=== PATIENT | female | born 1990 | race Caucasian/White ===

== ENCOUNTER → 2019-05-07 15:33 | Outpatient (CLI) | payer BC, SELFPAY ==
[2019-05-07 16:15] LABS: HCG,Quantitative 0 mIU/mL
== END ==
PROVIDERS: PCP Emergency Medicine; Visit Provider Physician Assistant
DX: N91.2 Amenorrhea, unspecified (principal)
CPT/HCPCS: 36415; 84702

== ENCOUNTER → 2020-07-01 15:22 | Outpatient (CLI) | payer BC, SELFPAY | PROVIDERS: Visit Provider Physician Assistant | DX: N39.0 Urinary tract infection, site not specified (principal) | CPT/HCPCS: 87086; 87088; 87186 ==

== ENCOUNTER 2020-07-01 18:15 | Emergency (ER) | payer BC, SELFPAY ==
[2020-07-01 18:22] VITALS: BP 118/81; PULSE 86; RESP 18; TEMP 36.9; O2SAT 97; BMI 38.7
--- NOTE | 2020-07-01 18:31 | CT_ITS ---
PROCEDURE: CT ABDOMEN PELVIS WO CON CLINICAL INDICATION: philip flank pain Bilateral flank pain COMPARISON: No exams were available for comparison TECHNIQUE: Axial images obtained with sagittal and coronal reformats. All CT scans at the facility use one or more dose reduction, viz: automated exposure control, ma/kV adjustment per patient size (including targeted exams where dose is matched to indication, i.e. head), or iterative reconstruction technique. FINDINGS: LOWER THORAX: There is a 13 mm lobulated noncalcified nodule in the left lower lobe posteriorly. There are bilateral breast implants. There is mild nonspecific thickening of the distal esophagus. ABDOMEN & PELVIS: Prior cholecystectomy. Borderline splenomegaly at 13 cm. The liver, adrenal glands, and pancreas have an unremarkable appearance. No definite renal or ureteral calculus is evident. There is minimal prominence of the ureters nonspecific. The urinary bladder wall is slightly thickened. No intestinal obstruction or free air. Unremarkable appendix no pelvic mass or abnormal fluid collection. There is mild amount of retained colonic feces. Postsurgical changes are present at L5 with inter pedicular screws. Pars interarticularis defect is present at L5. There is a small umbilical hernia containing fat. IMPRESSION: 1. There is mild urinary bladder wall thickening which may be seen with incomplete distension, chronic outflow obstruction, or cystitis.. There is minimal prominence of the ureters on both sides. No definite ureteral calculus 2. Mild amount of retained colonic feces 3. Thirteen mm noncalcified pulmonary nodule in the left lower lobe. If patient does not have known cancer, follow-up should be based on clinical information because of a low risk of cancer in this age group. Dictated by: Modesto Early MD 07/02/2020 03:56 Modesto Early MD in [place] 07/02/2020 03:56
--- NOTE | 2020-07-01 18:35 | PC.NURSE ---
notified rad of ct order, spoke with Leticia
[2020-07-01 18:40] LABS: Basophils # 0.1 K/mm3 (0-0.2); Basophils % 0.6 % (0.1-2.0); Eosinophils # 0.1 K/mm3 (0.0-0.4); Eosinophils % 1.2 % (0.1-12.0); Hematocrit 38.4 % (37.0-47.0); Hemoglobin 13.7 g/dL (12.2-16.2); Lymphocytes # 2.6 K/mm3 (0.7-4.5); Lymphocytes % 22.8 % (10-50); Mean Corpuscular HGB Conc 35.6 g/dL (31.8-35.4); Mean Corpuscular Hemoglobin 32.2 pg (27.0-31.2); Mean Corpuscular Volume 90.4 fl (81-99); Mean Platelet Volume 8.1 fl (7.4-10.4); Monocytes # 0.6 K/mm3 (0.1-1.0); Monocytes % 5.2 % (1.7-9.3); Neutrophils % 70.1 % (37.0-80.0); Platelet Count 265 K/mm3 (142-424); Red Blood Count 4.24 M/mm3 (4.20-5.40); White Blood Count 11.4 K/mm3 (4.8-10.8)
[2020-07-01 18:42] LABS: Chloride 102 mmol/L (98-107); Sodium 139 mmol/L (136-145)
[2020-07-01 18:45] LABS: Alanine Aminotransferase 18 U/L (12-78); Albumin Level 4.3 g/dl (3.5-5.0); Albumin/Globulin Ratio 1.5 (1.1-1.8); Alkaline Phosphatase 63 U/L (38-126); Aspartate Amino Transferase 26 U/L (14-36); Bilirubin,Total 0.5 mg/dl (0.2-1.3); Blood Urea Nitrogen 13 mg/dl (7-17); Carbon Dioxide 28 mmol/L (22.0-30.0); Creatinine Clearance Estimated 180 mL/min (50-200); Estimated Glomerular Filt Rate 85 ml/min (>60); GFR (African American) 103 ML/MIN (>60); Globulin 2.9 g/dL (1.3-3.2); Total Protein,Serum 7.2 g/dl (6.3-8.2)
[2020-07-01 18:46] LABS: Calcium 9.3 mg/dl (8.4-10.2); Glucose 98 mg/dl (74-100)
[2020-07-01 18:46] LABS: Microscopic, Urine URINE MICROSCOPIC (MICROSCOPIC)
[2020-07-01 18:51] LABS: Appearance,Urine SL CLOUDY (Clear); Bilirubin,Urine Negative (Negative); Blood, Urine 2+ (Negative); Color,Urine YELLOW (Yellow); Glucose,Urine (UA) Negative (Negative); Ketones,Urine Negative (Negative); Leukocyte Esterase,Urine 2+ (Negative); Nitrate,Urine POSITIVE (Negative); Protein,Urine Negative (Negative); Urobilinogen,Urine 0.2 EU/dl (0.2)
[2020-07-01 18:56] LABS: Urine Pregnancy, HCG Qual. Negative (Negative)
[2020-07-01 19:04] LABS: Bacteria,Urine Trace /lpf
--- NOTE | 2020-07-01 19:16 | HMH.EDUROGF ---
ED Disposition Clinical Impression: Urinary tract infection, Pyelonephritis Disposition: Home, Self-Care Condition on Discharge: Good Instructions: DI for Urinary Tract Infection (UTI), DI for Urinary Tract Infection in Children Prescriptions: Nabumetone 750 mg PO BID 10 Days #20 tab Transmission Status: Pending to [facility] Cefdinir [Omnicef 300mg Capsule] 300 mg PO BID 10 Days #20 cap Transmission Status: Pending to [facility] Cefdinir [Omnicef 300mg Capsule] 300 mg PO BID 10 Days #20 cap Transmission Status: Pending to [facility] Promethazine HCl 50 mg PO TID 6 Days #20 tab Transmission Status: Pending to [facility] Ondansetron [Zofran 4mg ODT] 4 mg PO TID PRN 4 Days #15 tab.rapdis PRN Reason: Nausea Transmission Status: Pending to [facility] Referrals: Mariam Lowery PA [Primary Care Provider] - - Critical Care Critical Care Time: No Attestation: On 07/01/20, the high probability of a clinically significant, sudden or life threatening deterioration of the following system(s) required my full and direct attention, intervention and personal management. The time I documented below is in addition to time spent performing reported procedures but includes the following listed in this critical care notation. Medical Decision Making - Medical Records Medical records reviewed: Yes: I reviewed the patient's medical records. - Crescencio Inquiry Pt receiving controlled substance: No Vital Signs: 07/01/20 18:22 Temperature 98.5 F Temperature Source Oral Pulse Rate [Left Radial] 86 Respiratory Rate 18 Blood Pressure [Left Arm] 118/81 Blood Pressure Mean [Left Arm] 93 Blood Pressure Source [Left Arm] Automatic Cuff Blood Pressure Position [Left Arm] Sitting 02 Sat by Pulse Oximetry 97 Oxygen Delivery Method Room Air - Lab Data Lab results reviewed: Yes: I reviewed the patient's lab results. Lab Results 07/01/20 18:32: WBC 11.4 H, RBC 4.24, Hgb 13.7, Hct 38.4, MCV 90.4, MCH 32.2 H, MCHC 35.6 H, RDW 13.0, Plt Count 265, MPV 8.1, Neut % (Auto) 70.1, Lymph % (Auto) 22.8, [place] % (Auto) 5.2, Eos % (Auto) 1.2, Baso % (Auto) 0.6, Neut # (Auto) 8.0 H, Lymph # (Auto) 2.6, [place] # (Auto) 0.6, Eos # (Auto) 0.1, Baso # (Auto) 0.1 07/01/20 18:32: Sodium 139, Potassium 4.0, Chloride 102, Carbon Dioxide 28, Anion Gap 13.0, BUN 13, Creatinine 0.80, Estimated Creat Clear 180, Estimated GFR 85, Est GFR ( Amer) 103, Glucose 98, Calcium 9.3, Total Bilirubin 0.5, AST 26, ALT 18, Alkaline Phosphatase 63, Total Protein 7.2, Albumin 4.3, Globulin 2.9, Albumin/Globulin Ratio 1.5 07/01/20 18:33: Urine Color Yellow, Urine Appearance Sl cloudy, Urine pH 7.0, Ur Specific [place] 1.010, Urine Protein Negative, Urine Glucose (UA) Negative, Urine Ketones Negative, Urine Blood 2+, Urine Nitrate Positive, Urine Bilirubin Negative, Urine Urobilinogen 0.2, Ur Leukocyte Esterase 2+ A, Urine RBC 3-5, Urine WBC 10-20, Ur Squamous Epith Cells 10-20, Urine Bacteria Trace 07/01/20 18:40: Urine HCG, Qual Negative Result diagrams: 07/01/20 18:32 07/01/20 18:32 Orders (Tests/Meds): ED MEDICATIONS Generic Name Dose Route Start Last Admin Trade Name Freq PRN Reason Stop Dose Admin Sodium Chloride 1,000 mls @ 999 mls/hr 07/01/20 18:45 07/01/20 18:44 Sod Chlor 0.9% 1000ml Bag IV 07/01/20 19:45 999 mls/hr .Q1H1M RACHEL Administration Ceftriaxone Sodium 1 gm/ 50 mls @ 100 mls/hr 07/01/20 18:45 07/01/20 18:44 Sodium Chloride IV 07/15/20 18:44 100 mls/hr Q24H RACHEL Administration Protocol Discontinued Medications Generic Name Dose Route Start Last Admin Trade Name Freq PRN Reason Stop Dose Admin Hydromorphone HCl 2 mg 07/01/20 19:23 07/01/20 19:32 Dilaudid 2mg/Ml Syringe IV 07/01/20 19:24 2 mg ONCE ONE Administration Morphine Sulfate 4 mg 07/01/20 18:40 07/01/20 18:44 Morphine 4mg/Ml Syringe IV 07/01/20 18:41 4 mg ONCE ONE A
[2020-07-01 19:50] VITALS: BP 132/70; PULSE 74; RESP 16; TEMP 36.8; O2SAT 98
== END 2020-07-01 20:12 | disposition home or self-care (01) ==
PROVIDERS: Emergency Provider Family Medicine; PCP Physician Assistant
DX: N30.00 Acute cystitis without hematuria (principal); N12 Tubulo-interstitial nephritis, not specified as acute or chronic; F41.8 Other specified anxiety disorders; Z90.49 Acquired absence of other specified parts of digestive tract; Z88.5 Allergy status to narcotic agent
CPT/HCPCS: 74176; 80053; 81001; 81025; 85025; 96365; 96367; 96375; 99283; J2405

== ENCOUNTER → 2020-10-30 16:50 | Outpatient (CLI) | payer BC, SELFPAY | PROVIDERS: PCP Physician Assistant; Referring Provider Physician Assistant; Visit Provider Physician Assistant | DX: Z03.818 Encounter for observation for suspected exposure to other biological agents ruled out (principal) | CPT/HCPCS: U0003 ==

== ENCOUNTER → 2020-12-24 18:31 | Outpatient (CLI) | payer BC, SELFPAY ==
[2020-12-24 19:28] LABS: Basophils % 0.6 % (0.1-2.0); Eosinophils # 0.1 K/mm3 (0.0-0.4); Eosinophils % 1.1 % (0.1-12.0); Hematocrit 42.4 % (37.0-47.0); Hemoglobin 14.2 g/dL (12.2-16.2); Lymphocytes # 1.8 K/mm3 (0.7-4.5); Lymphocytes % 25.7 % (10-50); Mean Corpuscular HGB Conc 33.5 g/dL (31.8-35.4); Mean Corpuscular Hemoglobin 30.5 pg (27.0-31.2); Mean Platelet Volume 8.9 fl (7.4-10.4); Monocytes # 0.4 K/mm3 (0.1-1.0); Neutrophils # 4.7 K/mm3 (1.8-7.8); Neutrophils % 66.6 % (37.0-80.0); Platelet Count 297 K/mm3 (142-424); Red Blood Count 4.66 M/mm3 (4.20-5.40); Red Cell Distribution Width 13.3 % (11.5-17.5); White Blood Count 7.1 K/mm3 (4.8-10.8)
[2020-12-24 19:36] LABS: Alanine Aminotransferase 20 U/L (12-78); Albumin Level 4.4 g/dl (3.5-5.0); Albumin/Globulin Ratio 1.5 (1.1-1.8); Alkaline Phosphatase 66 U/L (38-126); Anion Gap 12.3 mEq/L (5-15); Aspartate Amino Transferase 27 U/L (14-36); Blood Urea Nitrogen 11 mg/dl (7-17); Calcium 10.1 mg/dl (8.4-10.2); Carbon Dioxide 24 mmol/L (22.0-30.0); Chloride 106 mmol/L (98-107); Chol/HDL Ratio 3.4 (1-3.5); Cholesterol 189 mg/dl (140-200); Estimated Glomerular Filt Rate 74 ml/min (>60); GFR (African American) 90 ML/MIN (>60); Glucose 95 mg/dl (74-100); HDL Cholesterol 56 mg/dl (40-60); Potassium 4.3 mmoL/L (3.5-5.1); Sodium 138 mmol/L (136-145); Total Protein,Serum 7.4 g/dl (6.3-8.2); Triglycerides 154 mg/dl (30-150); VLDL Cholesterol 31 mg/dL (0-40)
[2020-12-24 19:47] LABS: Direct LDL Cholesterol 103.71 mg/dL (100-129)
[2020-12-24 19:51] LABS: 25-OH Vitamin D, Total 31.4 ng/mL (30-100)
[2020-12-24 19:57] LABS: T4 (Thyroxine) 11.5 ug/dl (5.53-11.0)
[2020-12-26 13:57] LABS: Anti-Centromere B Antibodies <0.2 AI (0.0-0.9); Anti-Jo-1 <0.2 AI (0.0-0.9); Anti-Smith Antibody <0.2 AI (0.0-0.9); Antichromatin Antibodies <0.2 AI (0.0-0.9); Antiscleroderma-70 Antibodies <0.2 AI (0.0-0.9); RNP Antibodies <0.2 AI (0.0-0.9); Sjogren's Anti-SS-A <0.2 AI (0.0-0.9); Sjogren's Anti-SS-B <0.2 AI (0.0-0.9)
[2020-12-26 14:02] LABS: Anti-DNA (DS) Ab Qn 1 IU/mL (0-9)
== END ==
PROVIDERS: Visit Provider Nurse Practitioner Family
DX: F41.9 Anxiety disorder, unspecified (principal); R53.83 Other fatigue; E66.9 Obesity, unspecified; Z68.39 Body mass index [BMI] 39.0-39.9, adult
CPT/HCPCS: 80053; 80061; 82306; 84436; 84443; 85025; 86225; 86235

== ENCOUNTER → 2021-02-19 15:41 | Outpatient (CLI) | payer BC, SELFPAY ==
[2021-02-19 16:40] LABS: HCG Qualitative, Serum Negative (Negative)
== END ==
PROVIDERS: Visit Provider Physician Assistant
DX: N91.2 Amenorrhea, unspecified (principal)
CPT/HCPCS: 84703

== ENCOUNTER → 2021-02-21 09:42 | Outpatient (CLI) | payer BC, SELFPAY ==
[2021-02-21 12:37] LABS: Coronavirus 19 IgM Antibody Negative (Negative)
[2021-02-21 12:38] LABS: Coronavirus 19 IgG Antibody Positive (Negative)
== END ==
PROVIDERS: Visit Provider Internal Medicine Gastroenterology
DX: Z01.812 Encounter for preprocedural laboratory examination (principal); Z20.822 Contact with and (suspected) exposure to COVID-19; Z13.810 Encounter for screening for upper gastrointestinal disorder
CPT/HCPCS: 36415; 86328

== ENCOUNTER 2021-02-23 10:17 | Day surgery (SDC) | payer BC, SELFPAY ==
[2021-02-19 08:26] VITALS: BMI 37.8
[2021-02-23 10:46] VITALS: BP 121/87; PULSE 73; RESP 18; TEMP 36.3; O2SAT 100
[2021-02-23 11:16] VITALS: O2SAT 97
--- NOTE | 2021-02-23 11:37 | HMH.PROC ---
[facility] Procedure Note Procedure Note:: Upper Endoscopy Procedure Report: Esophagogastroduodenoscopy with cold biopsies and TTS balloon dilation Endoscopost: Wes Sarabia II, MD Referring Physician: NOÉ Laird Date of Procedure: February 23, 2021 Equipment: Olympus GIF 190 standard upper endoscope Sedation: MAC sedation Indications: Mrs. Hernandez is a 30-year-old female with dyspepsia. She has epigastric and left upper quadrant abdominal pain that occurs postprandially. She has moderate fullness and early satiety. She only eats 1 meal a day. She may have food regurgitation that can occur up to 8 hours after her meal. She has nausea, bloating, belching and chest pain. She reports less heartburn but does get the chest pressure that radiates between her shoulder blades. She has lost 20 pounds unintentionally in the last year. She does have chronic constipation for which she occasionally eats prunes. She reports globus sensation and occasional dysphagia. Procedure: Prior to the procedure, a history and physical exam was performed, and patient's medications and allergies were reviewed. The risks, benefits and alternatives of the sedation and procedure were discussed with the patient. All questions were answered and informed consent was obtained. The patient was brought to the procedure room. Patient identification and proposed procedure were verified by the physician and the nurse. The patient was placed in a left lateral decubitus position and the scope was passed under direct vision. Throughout the procedure, the patient's blood pressure, pulse, and oxygen saturations were monitored continuously. The upper GI endoscopy was accomplished without difficulty. The patient tolerated the procedure well. Findings: The scope was passed directly into the upper esophagus and advanced to the third portion of the duodenum. The post bulbar duodenum and duodenal bulb were normal with normal mucosa and conniventes. The scope was withdrawn through a normal duodenal bulb and pylorus into the stomach. There was moderate linear reactive gastropathy of the antrum and body with bile reflux. The remainder of the fundus of the stomach was grossly normal. Upon retroflexion there was a 2 cm small hiatal hernia. 2 biopsies were taken in the antrum and along the lesser curvature for histology to rule out gastritis and/or H pylori. The scope was then withdrawn into the esophagus. There was a serrated Z-line. There was no evidence of reflux esophagitis or Konx's. There was no Schatzki's ring. There were tertiary contractions and evidence of moderate esophageal dysmotility. The entire esophagus was dilated to 60 Guamanian/20 mm with a TTS hydrostatic balloon. There was some resistance at the cricopharyngeus. The remainder of the esophageal mucosa was normal. Impression: 1. 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 Nonerosive GERD with moderate esophageal dysmotility and small 2 cm hiatal hernia 3. Moderate linear reactive gastropathy with bile reflux Plan: I will follow-up the biopsies. 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 This is due to obstipation and high gas pressure gradients. I will discussed dietary measures, fiber bowel regimen and promotility therapy.
[2021-02-23 11:44] VITALS: BP 136/78; PULSE 91; RESP 12; TEMP 36.4; O2SAT 95
[2021-02-23 11:51] VITALS: BP 143/79; PULSE 83; RESP 16; O2SAT 96
[2021-02-23 12:01] VITALS: BP 134/86; PULSE 88; RESP 16; O2SAT 98
[2021-02-23 12:11] VITALS: BP 148/94; PULSE 67; RESP 16; TEMP 36.4; O2SAT 99
--- NOTE | 2021-02-23 17:15 | HMH.ANESCL ---
[facility] Anesthesia Checklist - Patient Identification Patient Identification: Arm Band - Structural Data Admitted From: Home Planned Operative Procedure/s: EGD Verified Documents: Surgical Consent, History and Physical - Airway Assessment TMJ Mobility Assessed: Yes Dentition: Good Dentition - Neurological Assessment Level of Consciousness: Awake, Alert - Anesthesia Plan Anesthesia Risk discussed: Yes Anesthesia Plan: Verified ASA Class: III Anesthesia Type: MAC [facility] History Medical History: Reports:: Anxiety, Depression Denies:: Cancer, Diabetes Mellitus Type 1, Diabetes Mellitus Type 2, Internal Pacemaker, MRSA, Seizures *Have you ever received a pneumonia vaccine?: No *Have you received a flu vaccine this season?: Yes Anesthesia experience/problems:: None Other Surgeries: Yes: Cholecystectomy, Plastic Surgery, Other. No: Pacemaker Amputation: No Fractures: No - *Social History Smoking Status: Never smoker Alcohol Intake: never Alcohol Intake Frequency:: holidays/special occasions only Substance Use Type: denies use *Occupational Status:: employed Housing: house Household Members: children *Travel in the last 8 weeks: None - Psychiatric History Pschychiatric History:: Reports:: Anxiety, Depression Family Hx:: No significant family history
== END 2021-02-23 12:12 | disposition home or self-care (01) ==
LOC: OUTP 10:22
PROVIDERS: PCP Physician Assistant; Visit Provider Internal Medicine Gastroenterology
PROC: 0DJ08ZZ Inspection of Upper Intestinal Tract, Via Natural or Artificial Opening Endoscopic (ICD-10-PCS; CPT 43235; principal; 2021-02-23 11:30)
DX: J39.2 Other diseases of pharynx (principal); K21.9 Gastro-esophageal reflux disease without esophagitis; K22.4 Dyskinesia of esophagus; K44.9 Diaphragmatic hernia without obstruction or gangrene; K31.9 Disease of stomach and duodenum, unspecified; F41.9 Anxiety disorder, unspecified; F32.9 Major depressive disorder, single episode, unspecified; Z88.6 Allergy status to analgesic agent; Z91.013 Allergy to seafood; Z79.82 Long term (current) use of aspirin; Z79.899 Other long term (current) drug therapy
CPT/HCPCS: 43239; 43249; C1726

== ENCOUNTER → 2021-12-15 11:01 | Outpatient (CLI) | payer BC, SELFPAY ==
[2021-12-15 12:02] LABS: Basophils # 0.1 K/mm3 (0-0.2); Basophils % 0.8 % (0.1-2.0); Eosinophils # 0.1 K/mm3 (0.0-0.4); Eosinophils % 1.6 % (0.1-12.0); Hematocrit 41.2 % (37.0-47.0); Hemoglobin 13.8 g/dL (12.2-16.2); Lymphocytes # 1.9 K/mm3 (0.7-4.5); Lymphocytes % 27.7 % (10-50); Mean Corpuscular HGB Conc 33.6 g/dL (31.8-35.4); Mean Corpuscular Hemoglobin 30.3 pg (27.0-31.2); Mean Corpuscular Volume 90.3 fl (81-99); Mean Platelet Volume 8.5 fl (7.4-10.4); Monocytes # 0.4 K/mm3 (0.1-1.0); Monocytes % 5.7 % (1.7-9.3); Neutrophils # 4.3 K/mm3 (1.8-7.8); Neutrophils % 64.1 % (37.0-80.0); Platelet Count 325 K/mm3 (142-424); Red Blood Count 4.56 M/mm3 (4.20-5.40); Red Cell Distribution Width 13.4 % (11.5-17.5); White Blood Count 6.8 K/mm3 (4.8-10.8)
[2021-12-15 12:55] LABS: Chloride 101 mmol/L (98-107); Potassium 4.6 mmoL/L (3.5-5.1); Sodium 136 mmol/L (136-145)
[2021-12-15 12:57] LABS: Alanine Aminotransferase 20 U/L (12-78); Blood Urea Nitrogen 13 mg/dl (7-17); Estimated Glomerular Filt Rate 74 ml/min (>60); GFR (African American) 90 ML/MIN (>60)
[2021-12-15 12:58] LABS: Albumin Level 4.6 g/dl (3.5-5.0); Albumin/Globulin Ratio 1.8 (1.1-1.8); Alkaline Phosphatase 54 U/L (38-126); Anion Gap 13.6 mEq/L (5-15); Aspartate Amino Transferase 26 U/L (14-36); Bilirubin,Total 1.1 mg/dl (0.2-1.3); Calcium 8.9 mg/dl (8.4-10.2); Carbon Dioxide 26 mmol/L (22.0-30.0); Chol/HDL Ratio 2.5 (1-3.5); Cholesterol 173 mg/dl (140-200); Globulin 2.5 g/dL (1.3-3.2); Glucose 96 mg/dl (74-100); HDL Cholesterol 69 mg/dl (40-60); Total Protein,Serum 7.1 g/dl (6.3-8.2); Triglycerides 93 mg/dl (30-150); VLDL Cholesterol 19 mg/dL (0-40)
[2021-12-15 13:09] LABS: Direct LDL Cholesterol 80.48 mg/dL (100-129)
== END ==
PROVIDERS: Visit Provider Nurse Practitioner Family
DX: Z13.220 Encounter for screening for lipoid disorders (principal); T14.8XXA Other injury of unspecified body region, initial encounter; Z79.899 Other long term (current) drug therapy
CPT/HCPCS: 36415; 80053; 80061; 85025

== ENCOUNTER → 2022-03-08 10:42 | Outpatient (CLI) | payer BC, SELFPAY ==
[2022-03-08 18:07] LABS: Coronavirus 19, PCR Not Detected (NotDetected); Influenza A, PCR Not Detected (NotDetected); Influenza B, PCR Not Detected (NotDetected)
== END ==
PROVIDERS: PCP Physician Assistant; Visit Provider Physician Assistant
DX: Z11.52 Encounter for screening for COVID-19 (principal); R68.89 Other general symptoms and signs
CPT/HCPCS: C9803; U0003; U0005

== ENCOUNTER → 2022-04-15 07:09 | Outpatient (CLI) | payer BC, SELFPAY | PROVIDERS: PCP Physician Assistant; Visit Provider Physician Assistant | DX: N39.0 Urinary tract infection, site not specified (principal) | CPT/HCPCS: 87086 ==

== ENCOUNTER 2022-04-27 17:16 | Emergency (ER) | payer BC, SELFPAY ==
[2022-04-27 18:00] VITALS: BP 131/70; PULSE 89; RESP 18; TEMP 36.8; O2SAT 98; BMI 34.3
--- NOTE | 2022-04-27 18:17 | HMH.EDUTC ---
[facility] [place] Clinical Impression: UTI (urinary tract infection) Qualifiers: Urinary tract infection type: site unspecified Hematuria presence: with hematuria Qualified Code(s): N39.0 - Urinary tract infection, site not specified URI (upper respiratory infection) Qualifiers: URI type: unspecified URI Qualified Code(s): J06.9 - Acute upper respiratory infection, unspecified Disposition: Home, Self-Care Condition on Discharge: Good Instructions: Urinary Tract Infection, DI for Urinary Tract Infection (UTI), Cefdinir Additional Instructions: *Increase fluids. Water not Soda or Tea *Start antibiotic immediately and be sure to take as ordered for the FULL length of time although you should start to see improvement over the next 48 hours *Pyridium as needed Remember this medication will turn your urine [place]. This is normal but it will stain what ever it gets on *You should not use Pyridium for more than 48 hours. If so , follow up with your primary physician to review urine culture and ensure that antibiotic is adequate for infection *Be SURE to follow up anytime for new or worsening symptoms with your family doctor. AND in 48 hours for urine culture results with your family doctor, if you do not have a doctor then you may call back to the [facility] for urine culture results and further treatment. We do recommend that you choose and establish care with a Primary Care Physician. AND follow up with them in 10-14 days to repeat UA to ensure infection is resolved and blood no longer present *Be sure to let your PCP know that we sent urine cultures from the [facility] so they can follow up to ensure that you area the on the correct antibiotic Call your doctor office and make appointment for 48 hours (2 days from today) to follow up and get the results of your urine culture and further treatment Prescriptions: Cefdinir [Omnicef 300mg Capsule] 300 mg PO BID 7 Days #14 cap Transmission Status: Received by [facility] Phenazopyridine HCl [Pyridium 200mg Tablet] 200 pow PO TID #6 tab Transmission Status: Received by [facility] Ondansetron [Zofran 4mg ODT] 4 mg PO TIDP PRN #12 tab PRN Reason: Nausea Transmission Status: Received by [facility] Referrals: Mariam Lowery PA [Primary Care Provider] - As needed Time of Disposition: 18:30 Medical Decision Making - Crescencio Inquiry Pt receiving controlled substance: No Crescencio was queried for this patient: No Vital Signs: 04/27/22 18:00 04/27/22 18:36 Temperature 98.3 F 98.3 F Temperature Source Oral Pulse Rate 89 Pulse Rate [Right Brachial] 89 Respiratory Rate 18 19 Blood Pressure 131/70 Blood Pressure [Right Arm] 131/70 Blood Pressure Mean [Right Arm] 90 Blood Pressure Source [Right Arm] Automatic Cuff Blood Pressure Position [Right Arm] Sitting 02 Sat by Pulse Oximetry 98 Oxygen Delivery Method Room Air - Lab Data Lab results reviewed: Yes: I reviewed the patient's lab results. Lab Results 04/27/22 18:05: Urine Color Yellow, Urine Appearance Cloudy, Urine pH 6.0, Ur Specific [place] 1.010, Urine Protein Negative, Urine Glucose (UA) Negative, Urine Ketones Negative, Urine Blood Trace, Urine Nitrate Negative, Urine Bilirubin Negative, Urine Urobilinogen 0.2, Ur Leukocyte Esterase 2+ A Orders (Tests/Meds): ED MEDICATIONS Discontinued Medications Generic Name Dose Route Start Last Admin Trade Name Heberq PRN Reason Stop Dose Admin Ceftriaxone Sodium 1 gm 04/27/22 18:27 04/27/22 18:35 Ceftriaxone 1gm Vial IM 04/27/22 18:28 1 gm ONCE ONE Administration Lidocaine HCl 0 ml 04/27/22 18:27 04/27/22 18:35 Lidocaine 1% 5ml Pf Vial IM 04/27/22 18:28 2 ml ONCE ONE Administration ORDERS Category Date Time Status Urine Culture Stat Micro 04/27/22 18:20 Ordered [facility] HPI - General Stated complaint: poss UTI Time Seen by Provider: 04/27/22 18:17 Mode of Arrival: Ambulatory Source of Informat
[2022-04-27 18:21] LABS: Apearance,Urine Cloudy (Clear); Bilirubin,Urine Negative (Negative); Blood, Urine Trace (Negative); Color,Urine Yellow (Yellow); Glucose,Urine (UA) Negative (Negative); Ketones,Urine Negative (Negative); Protein,Urine Negative (Negative); UTC Leukocyte Esterase,Urine 2+ (Negative); Urobilinogen,Urine 0.2 EU/dl (0.2)
[2022-04-27 18:22] LABS: UTC Nitrate,Urine Negative (Negative)
[2022-04-27 18:36] VITALS: BP 131/70; PULSE 89; RESP 19; TEMP 36.8; O2SAT 98
== END 2022-04-27 18:43 | disposition home or self-care (01) ==
PROVIDERS: Emergency Provider Nurse Practitioner; PCP Physician Assistant
DX: N39.0 Urinary tract infection, site not specified (principal)
CPT/HCPCS: 81003; 87086; 96372; 99212; G0463; J0696

== ENCOUNTER → 2022-06-22 09:04 | Outpatient (CLI) | payer BC, SELFPAY ==
[2022-06-22 10:19] LABS: Basophils # 0.1 K/mm3 (0-0.2); Basophils % 0.8 % (0.1-2.0); Eosinophils # 0.1 K/mm3 (0.0-0.4); Hematocrit 38.8 % (37.0-47.0); Lymphocytes # 1.7 K/mm3 (0.7-4.5); Lymphocytes % 25.8 % (10-50); Mean Corpuscular Hemoglobin 28.9 pg (27.0-31.2); Mean Corpuscular Volume 93.2 fl (81-99); Mean Platelet Volume 7.6 fl (7.4-10.4); Monocytes # 0.3 K/mm3 (0.1-1.0); Monocytes % 4.5 % (1.7-9.3); Neutrophils # 4.5 K/mm3 (1.8-7.8); Neutrophils % 67.9 % (37.0-80.0); Platelet Count 307 K/mm3 (142-424); Red Blood Count 4.17 M/mm3 (4.20-5.40); Red Cell Distribution Width 12.8 % (11.5-17.5); White Blood Count 6.7 K/mm3 (4.8-10.8)
[2022-06-22 10:21] LABS: Chloride 102 mmol/L (98-107)
[2022-06-22 10:22] LABS: Sodium 136 mmol/L (136-145)
[2022-06-22 10:24] LABS: Alanine Aminotransferase 18 U/L (12-78); Albumin Level 4.3 g/dl (3.5-5.0); Albumin/Globulin Ratio 1.7 (1.1-1.8); Alkaline Phosphatase 59 U/L (38-126); Aspartate Amino Transferase 26 U/L (14-36); Bilirubin,Total 0.6 mg/dl (0.2-1.3); Blood Urea Nitrogen 17 mg/dl (7-17); Carbon Dioxide 30 mmol/L (22.0-30.0); Estimated Glomerular Filt Rate 84 ml/min (>60); GFR (African American) 102 ML/MIN (>60); Globulin 2.5 g/dL (1.3-3.2); Total Protein,Serum 6.8 g/dl (6.3-8.2)
[2022-06-22 10:25] LABS: Calcium 9.5 mg/dl (8.4-10.2); Chol/HDL Ratio 2.3 (1-3.5); Cholesterol 170 mg/dl (140-200); Glucose 114 mg/dl (74-100); HDL Cholesterol 73 mg/dl (40-60); Triglycerides 76 mg/dl (30-150); VLDL Cholesterol 15 mg/dL (0-40)
[2022-06-22 10:30] LABS: C-Reactive Protein 2.5 mg/L (0-4)
[2022-06-22 10:44] LABS: Erythrocyte Sedimentation Rate 15 mm/hr (0-20)
[2022-06-22 11:20] LABS: 25-OH Vitamin D, Total 47.7 ng/mL (30-100)
[2022-06-22 11:52] LABS: Vitamin B12 418 pg/mL (239-931)
[2022-06-23 12:42] LABS: FSH 5.2 mIU/mL (.); Progesterone 0.4 ng/mL (.); Prolactin 17.3 ng/mL (4.8-23.3); Testosterone,Total 28 ng/dL (13-71)
[2022-06-23 13:13] LABS: Anti-Centromere B Antibodies <0.2 AI (0.0-0.9); Anti-DNA (DS) Ab Qn <1 IU/mL (0-9); Anti-Jo-1 <0.2 AI (0.0-0.9); Anti-Smith Antibody <0.2 AI (0.0-0.9); Antichromatin Antibodies <0.2 AI (0.0-0.9); Antiscleroderma-70 Antibodies <0.2 AI (0.0-0.9); RNP Antibodies <0.2 AI (0.0-0.9); Sjogren's Anti-SS-A <0.2 AI (0.0-0.9); Sjogren's Anti-SS-B <0.2 AI (0.0-0.9)
[2022-06-23 17:09] LABS: RA Latex Turbid. 14.7 IU/mL (<14.0)
[2022-06-24 01:57] LABS: Direct LDL Cholesterol 84 mg/dL (100-129)
[2022-06-24 13:04] LABS: Lupus Reflex Interpretation Comment: (.); dRVVT 34.8 sec (0.0-47.0)
[2022-06-25 09:25] LABS: Estrogen 302 pg/mL (.)
[2022-06-27 06:48] LABS: Anti-Cyclic Citrullinated Pept 10 units (0-19)
== END ==
PROVIDERS: PCP Physician Assistant; Visit Provider Physician Assistant
DX: M32.9 Systemic lupus erythematosus, unspecified (principal); R73.09 Other abnormal glucose
CPT/HCPCS: 36415; 80053; 80061; 82306; 82607; 82672; 83001; 83002; 83036; 84144; 84146; 84403; 84443; 85025; 85613; 85651; 86140; 86200; 86225; 86235; 86431

== ENCOUNTER → 2022-07-09 06:54 | Outpatient (CLI) | payer BC, SELFPAY ==
--- NOTE | 2022-07-09 06:55 | CT_ITS ---
FINAL REPORT TECHNIQUE: Axial images were obtained from the lung apex to the mid abdomen by computed tomography. Coronal reformatted images were obtained. This study was performed with techniques to keep radiation doses as low as reasonably achievable, (ALARA). Individualized dose reduction techniques using automated exposure control or adjustment of mA and/or kV according to the patient''s size were employed. CLINICAL HISTORY: Hx of Histoplasmosis COMPARISON: CT of the abdomen and pelvis dated July 01, 2020 FINDINGS: There is no axillary adenopathy. There are calcified mediastinal and left hilar lymph nodes. Heart size is normal. There is no pericardial or pleural effusion. Limited images of the upper abdomen demonstrate postoperative changes from cholecystectomy. There is a less than 3 mm non obstructing right renal stone. A 13 mm nodule is seen in the posterior left lung base which may be partially calcified in the center. It is stable in size and appearance and favors a calcified granuloma. No new mass or nodule is identified. IMPRESSION: Stable left lung nodule which favors a calcified granuloma. No new mass or nodule is identified. Reviewed, Interpreted and Dictated by Rob Prakash III, MD Transcribed by Michelle Chapman Authenticated and [facility]
== END ==
LOC: RAD 06:55
PROVIDERS: PCP Physician Assistant; Visit Provider Physician Assistant
DX: G43.909 Migraine, unspecified, not intractable, without status migrainosus (principal); B39.9 Histoplasmosis, unspecified
CPT/HCPCS: 71250

== ENCOUNTER → 2022-08-04 08:31 | Outpatient (CLI) | payer BC, SELFPAY ==
--- NOTE | 2022-08-04 08:43 | MR_ITS ---
FINAL REPORT CLINICAL HISTORY: Confusion, headache migrain headaches post migraine , speech / viula disturbance covid may 21 20 ml prohance given FINDINGS: Multiplanar MR imaging of the brain was performed without and with contrast. There is no evidence of intracranial hemorrhage or mass. No abnormal extra-axial fluid collection is seen. The ventricular size is within normal limits. There is no evidence of shift of the midline structures. The posterior fossa and brainstem have an unremarkable appearance. No area of abnormal restricted diffusion is identified. No abnormal contrast enhancement is seen. Normal major vessel vascular flow voids are noted. There is mild mucosal thickening in the sinuses. IMPRESSION: No acute intracranial abnormality identified. Reviewed, Interpreted and Dictated by Rob Prakash III, MD Transcribed by Casey Ny Authenticated and [facility]
== END ==
LOC: RAD 08:32
PROVIDERS: PCP Physician Assistant; Visit Provider Specialist
DX: G43.829 Menstrual migraine, not intractable, without status migrainosus (principal); R41.0 Disorientation, unspecified; R47.89 Other speech disturbances
CPT/HCPCS: 70553; A9576

== ENCOUNTER 2022-09-29 13:40 | Emergency (ER) | payer BC, SELFPAY ==
[2022-09-29 14:56] VITALS: BP 114/75; PULSE 98; RESP 18; TEMP 37.2; O2SAT 100; BMI 36.0
--- NOTE | 2022-09-29 15:07 | EXP.UTC ---
Discharge Plan Disposition Patient Disposition: Home, Self-Care Condition: Good Prescriptions Prescriptions: New benzonatate 100 mg capsule 100 mg PO TID PRN (Reason: cough) Qty: 15 0RF oseltamivir [Tamiflu] 75 mg capsule 75 mg PO Q12H 5 Days Qty: 10 0RF No Action buspirone 10 mg tablet 10 mg PO BID Qty: 60 2RF tizanidine [Zanaflex] 4 mg tablet 4 mg PO Q8H PRN (Reason: muscle spasticity) Qty: 60 0RF memantine [Namenda XR] 7 mg capsule,sprinkle,ER 24hr 7 mg PO DAILY Qty: 30 2RF flu vacc [id number] 6mos up(PF) 60 mcg (15 mcg x 4)/0.5 mL syringe 0.5 ml IM ONCE Qty: 0.5 0RF albuterol sulfate [ProAir HFA] 90 mcg/actuation HFA aerosol inhaler 2 puff IH Q4-6H PRN (Reason: shortness of breath or wheezing) Qty: 8.5 3RF Ubrelvy 100 mg tablet 100 mg PO ONCE PRN (Reason: migraine headache treatment) Qty: 16 0RF Qulipta 30 mg tablet 30 mg PO DAILY Qty: 30 2RF dextroamphetamine-amphetamine [Adderall] 15 mg tablet 15 mg PO BID Qty: 60 0RF Referrals Follow up/Referrals: Mariam Lowery PA [Primary Care Provider] - See instructions Activity Restrictions/Add. Instructions Additional Instructions/Restrictions: * No sign of bacterial infection. Likely viral. Virus can take 7-14 days to run their course *Monitor Temp, Over the counter Motrin or Tylenol as directed/as needed Tylenol every 4 hours and Motrin every 6 hours (as long as your family doctor has told you that you can take it) for fever or pain. and straight to ER if unable to lower temp less than 101.0 after medication given *Warm salt water gargles may help to soothe the throat *Throat Lozenges? *Warm fluids like tea with honey may help to soothe the throat? *Sleep elevated *Humidifier/Vaporizer Your throat swab was sent for culture. Those results are typically sent to your primary care. Be sure to follow up in 2-3 days with your family doctor/primary care physician if no improvement so they can review those result and treat if necessary. If you don?t have a primary care doctor, I recommend you get one but in the mean time, you will have to return to a walk in clinic Follow up IMMEDIATELY for new or worsening symptoms or no Noticeable improvement over the next 48-72 hours. 911 for difficulty breathing or swallowing Clinical Impressions Clinical Impression: Viral upper respiratory tract infection with cough Stand Alone Forms Stand Alone Forms: Work/School Release Instructions Patient Instructions: Cough Discharge ED Provider: Kimberly Huynh [facility] HPI General Stated complaint: Congestion, drainage, fever, bodyaches, headache Mode of Arrival: Ambulatory Source of Information: Patient Limitations: No Limitations Time Seen by Provider: 09/29/22 15:07 Description of Symptoms (Recalled from Triage Doc. by RN): BODYACHES, FEVER, CONGESTION, COUGH AND FATIGUE THAT STARTED YESTERDAY HEENT Symptoms (Recalled from RN notes): Yes Resp Symptoms (Recalled from RN notes): Yes Skin Symptoms (Recalled from RN notes): No MS Symptoms (Recalled from RN notes): Yes Functional Status (Recalled from RN notes): WNL History of Present Illness Provider Complaint: Patient states that she has been having fever, chills, bodyaches, sore throat nasal congestion and feeling achy all over States that she feels like she may have the flu or something Related Data Previous Rx's Medication Instructions Recorded buspirone 10 mg tablet 10 mg PO BID #60 tabs 01/27/22 tizanidine 4 mg tablet (Zanaflex) 4 mg PO Q8H PRN muscle spasticity 05/17/22 #60 tabs albuterol sulfate 90 mcg/actuation 2 puff inhalation Q4-6H PRN 05/24/22 aerosol inhaler (ProAir HFA) shortness of breath or wheezing #8.5 grams atogepant 30 mg tablet (Qulipta) 30 mg PO DAILY for migraine 06/30/22 prevention #30 tabs ubrogepant 100 mg tablet (Ubrelvy) 100 mg PO ONCE PRN migraine 06/30/22 headache treatment #16 tabs memantine 7 mg capsule 7 mg PO
[2022-09-29 15:20] LABS: UTC Strep Screen (Rapid) Negative (Negative)
[2022-09-29 15:34] VITALS: BP 114/75; PULSE 98; RESP 18; TEMP 37.2; O2SAT 100
== END 2022-09-29 15:35 | disposition home or self-care (01) ==
PROVIDERS: Emergency Provider Nurse Practitioner; PCP Physician Assistant
DX: J06.9 Acute upper respiratory infection, unspecified (principal)
CPT/HCPCS: 87880; 99212; G0463

== ENCOUNTER → 2022-10-27 14:56 | Outpatient (CLI) | payer BC, SELFPAY ==
[2022-10-27 17:20] LABS: Amphetamine/Metha Screen,Urine Positive ng/ml (<1000); Barbiturates Screen,Urine Negative ng/ml (<200)
[2022-10-27 17:21] LABS: Benzodiazepines Screen,Urine Negative ng/ml (<200)
[2022-10-27 17:22] LABS: Cannabinoid Screen,Urine Negative ng/ml (<50); Cocaine Screen,Urine Negative ng/ml (<300)
[2022-10-27 17:23] LABS: Methadone Screen,Urine Negative ng/ml (<300)
[2022-10-27 17:24] LABS: Opiate Screen,Urine Negative ng/ml (<300); Phencyclidine Screen,Urine Negative ng/ml (<25)
== END ==
PROVIDERS: PCP Physician Assistant; Visit Provider Physician Assistant
DX: F90.9 Attention-deficit hyperactivity disorder, unspecified type (principal)
CPT/HCPCS: 80305

== ENCOUNTER 2023-01-31 08:06 | Emergency (ER) | payer BC, SELFPAY ==
[2023-01-31 08:25] VITALS: BP 135/85; PULSE 76; RESP 19; TEMP 37; O2SAT 99; BMI 41.8
--- NOTE | 2023-01-31 08:40 | EXP.UTC ---
Discharge Plan Disposition Patient Disposition: Home, Self-Care Condition: Good Prescriptions Prescriptions: New gentamicin 0.3 % drops 1 - 2 drp ophthalmic (eye) Q4H Qty: 5 0RF Rx Instructions: left eye as directed No Action buspirone 10 mg tablet 10 mg PO BID Qty: 60 2RF tizanidine [Zanaflex] 4 mg tablet 4 mg PO Q8H PRN (Reason: muscle spasticity) Qty: 60 0RF memantine [Namenda XR] 7 mg capsule,sprinkle,ER 24hr 7 mg PO DAILY Qty: 30 2RF flu vacc [id number] 6mos up(PF) 60 mcg (15 mcg x 4)/0.5 mL syringe 0.5 ml IM ONCE Qty: 0.5 0RF propranolol 120 mg capsule,extended release 24 hr 120 mg PO DAILY Qty: 30 2RF temazepam [Restoril] 7.5 mg capsule 7.5 mg PO HS PRN (Reason: sleep) Qty: 30 0RF albuterol sulfate [ProAir HFA] 90 mcg/actuation HFA aerosol inhaler 2 puff IH Q4-6H PRN (Reason: shortness of breath or wheezing) Qty: 8.5 3RF Qulipta 30 mg tablet 30 mg PO DAILY Qty: 30 2RF dextroamphetamine-amphetamine [Adderall] 15 mg tablet 15 mg PO BID Qty: 60 0RF Ubrelvy 100 mg tablet See Rx Instructions .ROUTE .COMPLEX Qty: 10 0RF Dose Instruction: TAKE ONE TABLET BY MOUTH ONCE NEEDED FOR MIGRAINE HEADACHE TREATMENT Rx Instructions: TAKE ONE TABLET BY MOUTH ONCE NEEDED FOR MIGRAINE HEADACHE TREATMENT Referrals Follow up/Referrals: Mariam Lowery PA [Primary Care Provider] - See instructions Activity Restrictions/Add. Instructions Additional Instructions/Restrictions: Wash hands well before and after applying eye drops Clean matting from eyes with warm water and baby shampoo Use drops as prescribed Follow up with your Family Doctor or Eye Doctor if no improvement or any worsening of symptoms Clinical Impressions Clinical Impression: Conjunctivitis Stand Alone Forms Stand Alone Forms: Work/School Release Instructions Patient Instructions: Conjunctivitis, DI for Conjunctivitis Discharge ED Provider: Kimberly Huynh [facility] General Stated complaint: LT eye redness w/drainage Time Seen by Provider: 01/31/23 08:40 History of Present Illness Provider Complaint: Patient states that she woke up this morning with her left eye matted shut and draining thick yellowish colored drainage States that feels like she may have pink eye Related Data Previous Rx's Medication Instructions Recorded buspirone 10 mg tablet 10 mg PO BID #60 tabs 01/27/22 tizanidine 4 mg tablet (Zanaflex) 4 mg PO Q8H PRN muscle spasticity 05/17/22 #60 tabs albuterol sulfate 90 mcg/actuation 2 puff inhalation Q4-6H PRN 05/24/22 aerosol inhaler (ProAir HFA) shortness of breath or wheezing #8.5 grams atogepant 30 mg tablet (Qulipta) 30 mg PO DAILY for migraine 06/30/22 prevention #30 tabs memantine 7 mg capsule 7 mg PO DAILY #30 ea 07/12/22 sprinkle,extended release 24hr (Namenda XR) dextroamphetamine-amphetamine 15 15 mg PO BID #60 tabs 10/27/22 mg tablet (Adderall) ubrogepant 100 mg tablet (Ubrelvy) See Rx Instructions .Route 12/07/22 .COMPLEX #10 tabs propranolol 120 mg capsule,24 120 mg PO DAILY #30 caps 01/17/23 hr,extended release temazepam 7.5 mg capsule (Restoril) 7.5 mg PO HS PRN sleep #30 caps 01/17/23 gentamicin 0.3 % eye drops 1 - 2 drp ophthalmic (eye) Q4H #5 01/31/23 mL Allergies Allergy/AdvReac Type Severity Reaction Status Date / Time codeine AdvReac Verified 01/17/23 08:30 cyclobenzaprine AdvReac Verified 01/17/23 08:30 [From Flexeril] [facility] Disclaimer: The information contained in this section may have been updated after the patient was seen, as this information can be updated by other users. Medical History Anxiety Currently on Vraylar, buspirone. Attention deficit hyperactivity disorder (ADHD) Chest pain Dyspnea Lupus Menstrual migraine History of frequent headache preceding onset of menstrual period most likely menstrual migraines currentl
[2023-01-31 08:50] VITALS: BP 135/85; PULSE 76; RESP 19; TEMP 37; O2SAT 99
== END 2023-01-31 09:00 | disposition home or self-care (01) ==
PROVIDERS: Emergency Provider Nurse Practitioner; PCP Physician Assistant
DX: H10.32 Unspecified acute conjunctivitis, left eye (principal); M32.9 Systemic lupus erythematosus, unspecified; E78.5 Hyperlipidemia, unspecified
CPT/HCPCS: 99212; 99214; G0463

== ENCOUNTER → 2023-02-08 08:46 | Outpatient (CLI) | payer BC, SELFPAY ==
[2023-02-12 17:20] LABS: Lyme B. burgdorferi PCR Blood Negative (Negative)
== END ==
PROVIDERS: PCP Physician Assistant; Visit Provider Physician Assistant
DX: Z11.9 Encounter for screening for infectious and parasitic diseases, unspecified (principal)
CPT/HCPCS: 36415; 87476

== ENCOUNTER 2023-11-14 18:10 | Outpatient (CLI) | payer BC, SELFPAY ==
[2023-11-14 23:26] LABS: Amphetamine/Metha Screen,Urine Negative ng/ml (<1000); Benzodiazepines Screen,Urine Negative ng/ml (<200)
[2023-11-14 23:27] LABS: Barbiturates Screen,Urine Negative ng/ml (<200)
[2023-11-14 23:28] LABS: Cannabinoid Screen,Urine Negative ng/ml (<50); Cocaine Screen,Urine Negative ng/ml (<300)
[2023-11-14 23:29] LABS: Methadone Screen,Urine Negative ng/ml (<300); Opiate Screen,Urine Negative ng/ml (<300)
[2023-11-14 23:42] LABS: Phencyclidine Screen,Urine Negative ng/ml (<25)
== END 2023-11-14 23:59 ==
LOC: LAB.DROPOF 18:10
PROVIDERS: PCP Physician Assistant; Visit Provider Physician Assistant
DX: F90.0 Attention-deficit hyperactivity disorder, predominantly inattentive type (principal); Z79.899 Other long term (current) drug therapy
CPT/HCPCS: 80307

== ENCOUNTER 2024-05-11 12:33 | Outpatient (CLI) | payer BC, SELFPAY ==
[2024-05-11 13:16] VITALS: BMI 31.3
[2024-05-11 14:14] LABS: Basophils % 0.8 % (0.1-2.0); Eosinophils # 0.1 K/mm3 (0.0-0.4); Hematocrit 40.9 % (37.0-47.0); Hemoglobin 13.9 g/dL (12.2-16.2); Lymphocytes # 1.5 K/mm3 (0.7-4.5); Lymphocytes % 28.8 % (10-50); Mean Corpuscular Hemoglobin 31.2 pg (27.0-31.2); Mean Corpuscular Volume 91.7 fl (81-99); Mean Platelet Volume 8.5 fl (7.4-10.4); Monocytes # 0.3 K/mm3 (0.1-1.0); Monocytes % 6.2 % (1.7-9.3); Neutrophils # 3.1 K/mm3 (1.8-7.8); Neutrophils % 62.3 % (37.0-80.0); Platelet Count 296 K/mm3 (142-424); Red Blood Count 4.46 M/mm3 (4.20-5.40); Red Cell Distribution Width 13.6 % (11.5-17.5); White Blood Count 5.1 K/mm3 (4.8-10.8)
[2024-05-11 14:16] LABS: Alanine Aminotransferase 25 U/L (12-78); Albumin Level 4.3 g/dl (3.5-5.0); Albumin/Globulin Ratio 1.7 (1.1-1.8); Alkaline Phosphatase 45 U/L (38-126); Aspartate Amino Transferase 25 U/L (14-36); Bilirubin,Total 0.7 mg/dl (0.2-1.3); Blood Urea Nitrogen 12 mg/dl (7-17); Calcium 9.5 mg/dl (8.4-10.2); Carbon Dioxide 28 mmol/L (22.0-30.0); Chloride 104 mmol/L (98-107); Creatinine Clearance Estimated 160 mL/min (50-200); Estimated Glomerular Filt Rate 97 ml/min (>60); GFR (African American) 117 ML/MIN (>60); Globulin 2.6 g/dL (1.3-3.2); Glucose 89 mg/dl (74-100); Magnesium 2.1 mg/dl (1.6-2.3); Sodium 138 mmol/L (136-145); Total Protein,Serum 6.9 g/dl (6.3-8.2)
[2024-05-11 14:33] LABS: 25-OH Vitamin D, Total 48.5 ng/mL (30-100)
[2024-05-11 14:48] LABS: Thyroid Stimulating Hormone 1.62 uIU/mL (0.465-4.68)
[2024-05-11 15:07] LABS: Vitamin B12 539 pg/mL (239-931)
== END 2024-05-11 23:59 | disposition home or self-care (01) ==
LOC: LAB 12:34
PROVIDERS: PCP Physician Assistant; Visit Provider Physician Assistant
DX: R25.3 Fasciculation (principal); E66.9 Obesity, unspecified; Z68.33 Body mass index [BMI] 33.0-33.9, adult
CPT/HCPCS: 80050; 80053; 82306; 82607; 83735; 84443; 85025

== ENCOUNTER 2024-12-05 12:35 | Emergency (ER) | payer BC, SELFPAY ==
[2024-12-05 12:38] VITALS: BP 116/71; PULSE 98; RESP 18; TEMP 37; O2SAT 98; BMI 26.4
--- NOTE | 2024-12-05 12:52 | HMH.EDGENADL ---
Discharge Plan Disposition Patient Disposition: Home, Self-Care Condition: Good Prescriptions Prescriptions: New promethazine 25 mg tablet 25 mg PO Q6H PRN (Reason: nausea and vomiting) Qty: 14 0RF ondansetron 4 mg tablet,disintegrating 4 mg PO Q6H PRN (Reason: nausea and vomiting) Qty: 10 0RF No Action fluoxetine 20 mg tablet 20 mg PO DAILY Zepbound 10 mg/0.5 mL pen injector SQ flu vacc [id number] 6mos up(PF) 60 mcg (15 mcg x 4)/0.5 mL syringe 0.5 ml IM ONCE Qty: 0.5 0RF dextroamphetamine-amphetamine 15 mg tablet 15 mg PO BID Qty: 60 0RF Rx Instructions: administer doses at least 4-6 hours apart albuterol sulfate [ProAir HFA] 90 mcg/actuation HFA aerosol inhaler 2 puff IH Q4-6H PRN (Reason: shortness of breath or wheezing) Qty: 8.5 3RF fluoxetine 20 mg capsule See Rx Instructions .ROUTE .COMPLEX Qty: 90 0RF Dose Instruction: Take 1 capsule by mouth once daily Rx Instructions: Take 1 capsule by mouth once daily Ubrelvy 100 mg tablet See Rx Instructions .ROUTE .COMPLEX Qty: 16 5RF Dose Instruction: TAKE ONE TABLET BY MOUTH ONCE NEEDED FOR MIGRAINE HEADACHE TREATMENT Rx Instructions: TAKE ONE TABLET BY MOUTH ONCE NEEDED FOR MIGRAINE HEADACHE TREATMENT Referrals Follow up/Referrals: Mariam Lowery PA [Primary Care Provider] - See instructions Activity Restrictions/Add. Instructions Additional Instructions/Restrictions: I have sent both Zofran and Phenergan to your pharmacy. Phenergan is the backup through the Zofran. Please follow-up with your PCP to establish care for this visit within 48 hours. If you have any new or worsening signs or symptoms return to the ER as needed. Clinical Impressions Clinical Impression: Pancolitis Instructions Patient Instructions: DI for Acute Abdominal Pain Print Language Print Language: Wolof Discharge ED Provider: Khris Simpson General Adult HPI <BROOKLYN Egan - Last Filed: 12/05/24 19:14> General Chief complaint: Abdominal Pain Stated complaint: abd pain, vomiting, poss dehydration Time Seen by Provider: 12/05/24 12:52 Mode of Arrival: Ambulatory Source of Information: Patient Limitations: No Limitations Description of Symptoms (Recalled from ER Triage Doc. by RN): Pt presents with c/o mid abd pain, vomiting and diarrhea since tuesday. History of Present Illness HPI narrative: Patient presents for evaluation of nausea vomiting diarrhea. Patient states that she has not been able to tolerate anything orally since Tuesday and has had more than 10 watery bowel movements a day since Tuesday. She reports diffuse abdominal pain that is mild. She denies any current fever chills hemoptysis hematochezia melena hematemesis hematuria. Patient has tried Zofran and oral repletion without success. Related Data Home Medications ?Medication ?Instructions ?Recorded ?Confirmed fluoxetine 20 mg tablet 20 mg PO DAILY 09/11/24 09/11/24 tirzepatide (weight loss) 10 mg SQ 09/11/24 09/11/24 mg/0.5 mL subcutaneous pen injector (Zepbound) Previous Rx's ?Medication ?Instructions ?Recorded albuterol sulfate 90 mcg/actuation 2 puff inhalation Q4-6H PRN 05/24/22 aerosol inhaler (ProAir HFA) shortness of breath or wheezing #8.5 grams fluoxetine 20 mg capsule See Rx Instructions .Route 05/19/24 .COMPLEX #90 caps dextroamphetamine-amphetamine 15 15 mg PO BID #60 tabs 06/04/24 mg tablet ubrogepant 100 mg tablet (Ubrelvy) See Rx Instructions .Route 07/04/24 .COMPLEX #16 tabs ondansetron 4 mg disintegrating 4 mg PO Q6H PRN nausea and 12/05/24 tablet vomiting #10 tabs promethazine 25 mg tablet 25 mg PO Q6H PRN nausea and 12/05/24 vomiting #14 tabs Allergies Allergy/AdvReac Type Severity Reaction Status Date / Time codeine AdvReac Verified 09/11/24 14:35 cyclobenzaprine (From AdvReac Verified 09/11/24 14:35 Flexeril) [facility] <BROOKLYN Egan - Last Filed: 12/05/24 19:14> [facility] Disclaimer: The information contained in this section may have been updated after the patient was seen, as this information can be updated by other users. Medical History (Updated 12/05/24 @ 16:55 by BROOKLYN Egan) Tinnitus, bilateral Hearing difficulty of both ears Skin tag of labia Genital warts History of ovulatory pain Dyspareunia Endometriosis Menorrhagia with regular cycle Transformed migraine Menstrual migraine Histoplasmosis Lupus Pulmonary histoplasmosis Anxiety Obesity Chest pain Dyspnea Attention deficit hyperactivity disorder (ADHD) Surgical History Hx of fusion of cervical spine Hx of wisdom tooth extraction Hx of breast lump removal Hx of breast augmentation Hx of cholecystectomy Family History Grandmother Cancer breast Grandfather Diabetes Other Hypertension Social History Smoking Status: Never smoker alcohol intake: current alcohol intake frequency: holidays/special occasions only substance use type: denies use current occupational status: employed Travel in the last 8 weeks: Outside the [facility] household members: spouse and children housing: house current occupational exposures/hazards: Yes caffeine: No Have you lived/traveled outside [place] in past 30 days?: No Contact w/someone who lives/traveled outside US past 30 days?: No Exposure to someone with infectious disease in past 14 days?: No Do you have a fever (greater than 100.4 F or 38 C)?: No Have you tested positive for COVID-19: No Exposed to someone with COVID-19 in past 14 days?: No Do you have a sore throat?: No Do you have a cough?: No Do you have any weakness?: No Do you have any diarrhea?: No Are you experiencing any unusual bleeding?: No Do you have any muscle aches/pain?: No Do you have any abdominal pain?: Yes Are you experiencing loss of taste or smell?: No Other Medical History Have you received the Flu Vaccine for this season: Yes Have you received the Pneumonia Vaccine: No <BROOKLYN Egan - Last Filed: 12/05/24 19:14> ROS Obtained: Yes Systems reviewed as appropriate & no additional complaints except as documented Physical Exam <BROOKLYN Egan - Last Filed: 12/05/24 19:14> General General appearance: alert and in no apparent distress Respiratory Respiratory exam: Present normal lung sounds bilaterally Cardiovascular Cardiovascular exam: Present regular rate Neurological Exam Neurological exam: Present alert and oriented X3 Medical Decision Making <BROOKLYN Egan - Last Filed: 12/05/24 19:14> Medical Records Medical records reviewed: Yes I reviewed the patient's medical records. Screening: Per USPSTF and CDC recommendations, given the prevalence of disease in our region, it is our hospital?s policy to screen for HIV and viral Hepatitis for all patients aged 18 and over and those with ongoing risk factors. Crescencio Inquiry Pt receiving controlled substance: No Vital Signs: 12/05/24 12:38 12/05/24 13:46 12/05/24 14:00 Temperature 98.6 F Temperature Source Oral Pulse Rate 76 Pulse Rate [Right] 98 H Respiratory Rate 18 Blood Pressure 110/81 118/79 Blood Pressure [Right Arm] 116/71 Blood Pressure Mean 90 Blood Pressure Mean [Right Arm] 86 Blood Pressure Position [Right Arm] Sitting 02 Sat by Pulse Oximetry 98 99 Oxygen Delivery Method Room Air Room Air 12/05/24 14:31 12/05/24 15:44 12/05/24 17:02 Temperature 98.2 F Temperature Source Oral Pulse Rate 100 H 95 H Pulse Rate [Right] Respiratory Rate 20 Blood Pressure 122/75 112/68 112/68 Blood Pressure [Right Arm] Blood Pressure Mean 82 Blood Pressure Mean [Right Arm] Blood Pressure Position [Right Arm] 02 Sat by Pulse Oximetry 100 Oxygen Delivery Method Room Air Lab Data Lab results reviewed: Yes I reviewed the patient's lab results. Lab Results 12/05/24 12:55: WBC 10.3, RBC 4.73, Hgb 13.9, Hct 40.7, MCV 86.0, MCH 29.4, MCHC 34.2, RDW 12.6, Plt Count 335, MPV 10.2, Neut % (Auto) 70.4, Lymph % (Auto) 16.8, [place] % (Auto) 7.6, Eos % (Auto) 4.4, Baso % (Auto) 0.5, Neut # (Auto) 7.2, Lymph # (Auto) 1.7, [place] # (Auto) 0.8, Eos # (Auto) 0.5 H, Baso # (Auto) 0.1, Sodium 139, Potassium 3.8, Chloride 103, Carbon Dioxide 23, Anion Gap 16.8 H, BUN 15, Creatinine 0.90, Estimated Creat Clear 105, Estimated GFR 73, Est GFR ( Amer) 88, Glucose 101 H, Calcium 9.2, Magnesium 1.8, Total Bilirubin 2.2 H, AST 27, ALT 23, Alkaline Phosphatase 43, Total Protein 7.6, Albumin 4.9, Globulin 2.7, Albumin/Globulin Ratio 1.8, Lipase 93, Procalcitonin 0.050 12/05/24 13:12: Stool Occult Blood Negative 12/05/24 13:41: Urine Color Evi, Urine Appearance Clear, Urine pH 6.0, Ur Specific [place] >= 1.030, Urine Protein 1+ A, Urine Glucose (UA) Negative, Urine Ketones Trace, Urine Blood Negative, Urine Nitrate Negative, Urine Bilirubin Negative, Urine Urobilinogen 0.2, Ur Leukocyte Esterase Trace, Urine RBC None, Urine WBC 5-10, Ur Squamous Epith Cells 10-20, Urine Bacteria 1+, Urine Mucus Trace, Urine HCG, Qual Negative 12/05/24 12:55 12/05/24 12:55 Orders (Tests/Meds): ED MEDICATIONS Discontinued Medications Generic Name Dose Route Start Last Admin Trade Name Kendra PRN Reason Stop Dose Admin Lactated Ringer's 1,000 mls @ 999 mls/hr 12/05/24 12:53 12/05/24 13:10 Lactated Ringer's 1000 Ml Bag IV 12/05/24 13:53 999 mls/hr .Q1H1M ONE Administration Iopamidol 75 ml 12/05/24 14:28 12/05/24 14:29 Iopamidol-370 (76%);100ml Bottle IV 12/05/24 14:29 75 ml ONCE ONE Administration Promethazine HCl 25 mg 12/05/24 13:24 12/05/24 13:27 Promethazine Hcl 25mg/Ml 1ml Vial IV 12/05/24 13:25 25 mg ONCE ONE Administration Sodium Chloride 25 ml 12/05/24 13:24 12/05/24 13:27 Sodium Chloride 0.9% 25ml Bag IV 12/05/24 13:25 25 ml ONCE ONE Administration Sodium Chloride 10 ml 12/05/24 14:28 12/05/24 14:29 Sodium Chloride 0.9% 10ml Syr (Rad Only) IV 12/05/24 14:29 10 ml ONCE ONE Administration ORDERS Category Date Time Status CT abdomen pelvis w con Stat Cat Scan 12/05/24 12:59 Completed CBC w/Auto Diff [Complete Blood Count Auto Diff] Stat Lab 12/05/24 12:55 Completed CMP [Comprehensive Metabolic Panel] Stat Lab 12/05/24 12:55 Completed Diarrhea 23 Panel, PCR Stat Lab 12/05/24 13:12 Received Lipase Stat Lab 12/05/24 12:55 Completed Magnesium Stat Lab 12/05/24 12:55 Completed Occult Blood,Stool Stat Lab 12/05/24 13:12 Completed Procalcitonin Stat Lab 12/05/24 12:55 Completed UA [Urinalysis and Microscopic] Stat Lab 12/05/24 13:41 Completed Urine , HCG Qual. Stat Lab 12/05/24 13:41 Completed Tissue Perfus/Sepsis Re-Eval Sepsis Re-Evaluation Performed: Yes Date Performed: 12/05/24 Time Performed: 17:30 Medical Decision Narrative: In summary patient is a 33-year-old female who presents to the emergency department for evaluation of 5 days of nausea vomiting and diarrhea. Patient is initially normotensive at 116/71 heart rate 98 sinus rhythm on bedside monitor breathing 18 times a minute satting 90% upon arrival, afebrile at 90.6. Physical exam is remarkable for mild diffuse abdominal discomfort on palpation but no rebound or guarding or rigidity or focal tenderness. Bowel sounds hyperactive.. Differential diagnosis includes viral or bacterial gastroenteritis versus colitis etc. Initial workup will be conducted with hematologic labs diarrhea panel urinalysis. Initial interventions include crystalloid bolus Tylenol Phenergan. Initial workup reviewed by me shows that her hematologic labs are nonactionable including normal white count negative procalcitonin negative lipase plan urinalysis my informal interpretation of her CT scan abdomen pelvis shows pancolitis without evidence of perforation free fluid or free air.. Upon repeat evaluation patient is actually tolerating oral intake now. Given this the diarrhea panel is still pending however via patient directed decision making and shared decision making patient is comfortable going home with me calling her later if her diarrhea panel is positive for an organism that requires antibiotics and she will keep track of the portal. Patient to follow-up with PCP within 48 hours for recheck. I have sent Zofran and Phenergan in as a backup antinausea medication. Patient advised to start a brat diet. <Khris Simpson MD - Last Filed: 12/05/24 19:20> Vital Signs: 12/05/24 12:38 12/05/24 13:46 12/05/24 14:00 Temperature 98.6 F Temperature Source Oral Pulse Rate 76 Pulse Rate [Right] 98 H Respiratory Rate 18 Blood Pressure 110/81 118/79 Blood Pressure [Right Arm] 116/71 Blood Pressure Mean 90 Blood Pressure Mean [Right Arm] 86 Blood Pressure Position [Right Arm] Sitting 02 Sat by Pulse Oximetry 98 99 Oxygen Delivery Method Room Air Room Air 12/05/24 14:31 12/05/24 15:44 12/05/24 17:02 Temperature 98.2 F Temperature Source Oral Pulse Rate 100 H 95 H Pulse Rate [Right] Respiratory Rate 20 Blood Pressure 122/75 112/68 112/68 Blood Pressure [Right Arm] Blood Pressure Mean 82 Blood Pressure Mean [Right Arm] Blood Pressure Position [Right Arm] 02 Sat by Pulse Oximetry 100 Oxygen Delivery Method Room Air Lab Data Lab Results 12/05/24 12:55: WBC 10.3, RBC 4.73, Hgb 13.9, Hct 40.7, MCV 86.0, MCH 29.4, MCHC 34.2, RDW 12.6, Plt Count 335, MPV 10.2, Neut % (Auto) 70.4, Lymph % (Auto) 16.8, [place] % (Auto) 7.6, Eos % (Auto) 4.4, Baso % (Auto) 0.5, Neut # (Auto) 7.2, Lymph # (Auto) 1.7, [place] # (Auto) 0.8, Eos # (Auto) 0.5 H, Baso # (Auto) 0.1, Sodium 139, Potassium 3.8, Chloride 103, Carbon Dioxide 23, Anion Gap 16.8 H, BUN 15, Creatinine 0.90, Estimated Creat Clear 105, Estimated GFR 73, Est GFR ( Amer) 88, Glucose 101 H, Calcium 9.2, Magnesium 1.8, Total Bilirubin 2.2 H, AST 27, ALT 23, Alkaline Phosphatase 43, Total Protein 7.6, Albumin 4.9, Globulin 2.7, Albumin/Globulin Ratio 1.8, Lipase 93, Procalcitonin 0.050 12/05/24 13:12: Stool Occult Blood Negative 12/05/24 13:41: Urine Color Evi, Urine Appearance Clear, Urine pH 6.0, Ur Specific [place] >= 1.030, Urine Protein 1+ A, Urine Glucose (UA) Negative, Urine Ketones Trace, Urine Blood Negative, Urine Nitrate Negative, Urine Bilirubin Negative, Urine Urobilinogen 0.2, Ur Leukocyte Esterase Trace, Urine RBC None, Urine WBC 5-10, Ur Squamous Epith Cells 10-20, Urine Bacteria 1+, Urine Mucus Trace, Urine HCG, Qual Negative Orders (Tests/Meds): ED MEDICATIONS Discontinued Medications Generic Name Dose Route Start Last Admin Trade Name Freq PRN Reason Stop Dose Admin Lactated Ringer's 1,000 mls @ 999 mls/hr 12/05/24 12:53 12/05/24 13:10 Lactated Ringer's 1000 Ml Bag IV 12/05/24 13:53 999 mls/hr .Q1H1M ONE Administration Iopamidol 75 ml 12/05/24 14:28 12/05/24 14:29 Iopamidol-370 (76%);100ml Bottle IV 12/05/24 14:29 75 ml ONCE ONE Administration Promethazine HCl 25 mg 12/05/24 13:24 12/05/24 13:27 Promethazine Hcl 25mg/Ml 1ml Vial IV 12/05/24 13:25 25 mg ONCE ONE Administration Sodium Chloride 25 ml 12/05/24 13:24 12/05/24 13:27 Sodium Chloride 0.9% 25ml Bag IV 12/05/24 13:25 25 ml ONCE ONE Administration Sodium Chloride 10 ml 12/05/24 14:28 12/05/24 14:29 Sodium Chloride 0.9% 10ml Syr (Rad Only) IV 12/05/24 14:29 10 ml ONCE ONE Administration ORDERS Category Date Time Status CT abdomen pelvis w con Stat Cat Scan 12/05/24 12:59 Completed CBC w/Auto Diff [Complete Blood Count Auto Diff] Stat Lab 12/05/24 12:55 Completed CMP [Comprehensive Metabolic Panel] Stat Lab 12/05/24 12:55 Completed Diarrhea 23 Panel, PCR Stat Lab 12/05/24 13:12 Received Lipase Stat Lab 12/05/24 12:55 Completed Magnesium Stat Lab 12/05/24 12:55 Completed Occult Blood,Stool Stat Lab 12/05/24 13:12 Completed Procalcitonin Stat Lab 12/05/24 12:55 Completed UA [Urinalysis and Microscopic] Stat Lab 12/05/24 13:41 Completed Urine , HCG Qual. Stat Lab 12/05/24 13:41 Completed Medical Decision Narrative: In summary patient is a 33-year-old female who presents to the emergency department for evaluation of 5 days of nausea vomiting and diarrhea. Patient is initially normotensive at 116/71 heart rate 98 sinus rhythm on bedside monitor breathing 18 times a minute satting 90% upon arrival, afebrile at 90.6. Physical exam is remarkable for mild diffuse abdominal discomfort on palpation but no rebound or guarding or rigidity or focal tenderness. Bowel sounds hyperactive.. Differential diagnosis includes viral or bacterial gastroenteritis versus colitis etc. Initial workup will be conducted with hematologic labs diarrhea panel urinalysis. Initial interventions include crystalloid bolus Tylenol Phenergan. Initial workup reviewed by me shows that her hematologic labs are nonactionable including normal white count negative procalcitonin negative lipase plan urinalysis my informal interpretation of her CT scan abdomen pelvis shows pancolitis without evidence of perforation free fluid or free air.. Upon repeat evaluation patient is actually tolerating oral intake now. Given this the diarrhea panel is still pending however via patient directed decision making and shared decision making patient is comfortable going home with me calling her later if her diarrhea panel is positive for an organism that requires antibiotics and she will keep track of the portal. Patient to follow-up with PCP within 48 hours for recheck. I have sent Zofran and Phenergan in as a backup antinausea medication. Patient advised to start a brat diet. I was consulted by the GENO, and we discussed the complexity of the problems being addressed. I approved the treatment and management plan for this patient's care in the Emergency Department, thus performing a substantive portion of the medical decision making. Khris Simpson MD Critical Care <BROOKLYN Egan - Last Filed: 12/05/24 19:14> Critical Care Time Critical Care Time: No
--- NOTE | 2024-12-05 12:59 | CT_ITS ---
FINAL REPORT TECHNIQUE: Thin section axial images are obtained through the abdomen and pelvis after intravenous contrast. Reconstruction images were obtained from the axial data. Exam was performed using dose reduction techniques. This study was performed with techniques to keep radiation doses as low as reasonably achievable (ALARA). Individualized dose reduction techniques using automated exposure control or adjustment of mA and/or kV according to the patient's size were employed. CLINICAL HISTORY: Abdominal pain nausea vomiting diarrhea for 5 days COMPARISON: 07/01/2020 FINDINGS: LUNG BASES: The left lower lobe nodule seen on the prior CT of the abdomen and pelvis dated 07/01/2020 remains present, and is now calcified, consistent in appearance with a calcified granuloma. The lung bases are otherwise clear. Heart size is normal. LIVER: Homogeneous. No focal lesion. GALLBLADDER/BILIARY SYSTEM: The gallbladder is absent. No biliary dilatation. SPLEEN: Unremarkable. PANCREAS: Unremarkable. ADRENALS: Unremarkable. KIDNEYS/URETERS/BLADDER: No hydronephrosis, renal mass, or renal stone. Unremarkable urinary bladder. GI TRACT: There are fluid-filled loops of small bowel present. No small bowel obstruction or dilatation. Normal appendix. There is mild fluid present in the colon, with a hyperenhancing wall consistent with enterocolitis. PELVIC ORGANS: There is a hyperdense lesion involving the left ovary, that may represent a hemorrhagic cyst. Physiologic free fluid is present in the pelvis. LYMPH NODES/RETROPERITONEUM/MESENTERY: No lymphadenopathy. No abdominal aortic aneurysm. ABDOMINAL WALL: The abdominal wall is intact. BONES: No acute osseous abnormality. IMPRESSION: Fluid is present in the distal colon, with hyperenhancement in the wall of the colon, consistent with enterocolitis. The left lower lobe nodule mentioned on the prior CT of 2019 is now calcified, consistent with a calcified granuloma. Reviewed, Interpreted and Dictated by Chelle Robertson MD Transcribed by Chandni Mathews Authenticated and [facility]
[2024-12-05] MEDS: LACTATED RINGERS 1000ML 1,000 ML 999 ML IV (13:10)
[2024-12-05 13:14] LABS: Alanine Aminotransferase 23 U/L (12-78); Albumin Level 4.9 g/dl (3.5-5.0); Albumin/Globulin Ratio 1.8 (1.1-1.8); Alkaline Phosphatase 43 U/L (38-126); Anion Gap 16.8 mEq/L (5-15); Aspartate Amino Transferase 27 U/L (14-36); Bilirubin,Total 2.2 mg/dl (0.2-1.3); Blood Urea Nitrogen 15 mg/dl (7-17); Calcium 9.2 mg/dl (8.4-10.2); Carbon Dioxide 23 mmol/L (22.0-30.0); Chloride 103 mmol/L (98-107); Creatinine Clearance Estimated 105 mL/min (50-200); Estimated Glomerular Filt Rate 73 ml/min (>60); GFR (African American) 88 ML/MIN (>60); Globulin 2.7 g/dL (1.3-3.2); Glucose 101 mg/dl (74-100); Lipase 93 U/L (23-300); Magnesium 1.8 mg/dl (1.6-2.3); Potassium 3.8 mmoL/L (3.5-5.1); Sodium 139 mmol/L (136-145); Total Protein,Serum 7.6 g/dl (6.3-8.2)
[2024-12-05 13:19] LABS: Adenovirus F 40/41, stool Not Detected (NotDetected); Astrovirus Not Detected (NotDetected); Campylobacter Not Detected (NotDetected); Clostridium Difficile A/B, PCR Not Detected (NotDetected); Cryptosporidium Not Detected (NotDetected); Cyclospora Cayetanesis Not Detected (NotDetected); Entamoeba histolytica Not Detected (NotDetected); Enteroaggregative E coli Not Detected (NotDetected); Enteropathogenic E coli Not Detected (NotDetected); Enterotoxigenic E coli Not Detected (NotDetected); Giardia lamblia Not Detected (NotDetected); Norovirus Not Detected (NotDetected); Plesimonas Shigalloides, PCR Not Detected (NotDetected); Rotavirus A Not Detected (NotDetected); Salmonella, PCR Not Detected (NotDetected); Sapovirus Not Detected (NotDetected); Shiga-like toxin E coli Not Detected (NotDetected); Shigella Enterovasive E coli Not Detected (NotDetected); Vibrio Cholerae Not Detected (NotDetected); Vibrio, PCR Not Detected (NotDetected); Yersinia Entercolitica, PCR Not Detected (NotDetected)
--- NOTE | 2024-12-05 13:21 | PC.NURSE ---
Patient was made aware that we need a UA. Pt stated that she will provide one as soon as she can.
[2024-12-05 13:22] LABS: Basophils # 0.1 K/mm3 (0-0.2); Basophils % 0.5 % (0.1-2.0); Eosinophils # 0.5 K/mm3 (0.0-0.4); Eosinophils % 4.4 % (0.1-12.0); Hematocrit 40.7 % (37.0-47.0); Hemoglobin 13.9 g/dL (12.2-16.2); Lymphocytes # 1.7 K/mm3 (0.7-4.5); Lymphocytes % 16.8 % (10-50); Mean Corpuscular HGB Conc 34.2 g/dL (31.8-35.4); Mean Corpuscular Hemoglobin 29.4 pg (27.0-31.2); Mean Platelet Volume 10.2 fl (7.4-10.4); Monocytes # 0.8 K/mm3 (0.1-1.0); Monocytes % 7.6 % (1.7-9.3); Neutrophils # 7.2 K/mm3 (1.8-7.8); Neutrophils % 70.4 % (37.0-80.0); Platelet Count 335 K/mm3 (142-424); Red Blood Count 4.73 M/mm3 (4.20-5.40); Red Cell Distribution Width 12.6 % (11.5-17.5); White Blood Count 10.3 K/mm3 (4.8-10.8)
[2024-12-05] MEDS: PROMETHAZINE HCL 25MG/ML 1ML VIAL 25 MG IV (13:27)
[2024-12-05] MEDS: SODIUM CHLORIDE 0.9% 25ML BAG 25 ML IV (13:27)
[2024-12-05 13:46] VITALS: BP 110/81
[2024-12-05 13:47] LABS: Microscopic, Urine URINE MICROSCOPIC (MICROSCOPIC)
[2024-12-05 13:58] LABS: Appearance,Urine CLEAR (Clear); Blood, Urine Negative (Negative); Color,Urine AMBER (Yellow); Glucose,Urine (UA) Negative (Negative); Ketones,Urine TRACE (Negative); Leukocyte Esterase,Urine TRACE (Negative); Nitrate,Urine Negative (Negative); Protein,Urine 1+ (Negative); Specific Gravity, Urine >= 1.030 (1.005-1.030); Urobilinogen,Urine 0.2 EU/dl (0.2)
[2024-12-05 13:59] LABS: Bilirubin,Urine Negative (Negative)
[2024-12-05 14:00] VITALS: BP 118/79; PULSE 76; O2SAT 99
[2024-12-05 14:01] LABS: Urine Pregnancy, HCG Qual. Negative (Negative)
[2024-12-05] MEDS: SODIUM CHLORIDE 0.9% 10ML SYR (RAD ONLY) 10 ML IV (14:29)
[2024-12-05] MEDS: IOPAMIDOL-370 (76%);100ML BOTTLE 75 ML IV (14:29)
[2024-12-05 14:30] LABS: Bacteria,Urine 1+ /lpf; Mucus,Urine Trace /lpf
[2024-12-05 14:31] VITALS: BP 122/75
[2024-12-05 14:37] LABS: Occult Blood,Stool Negative (Negative)
--- NOTE | 2024-12-05 15:29 | PC.NURSE ---
ROUNDED ON THE PT. THE PT VOICES THAT SHE DOES NOT NEED ANYTHING AT THIS TIME. CALL LIGHT IS WITHIN REACH OF THE PT.
[2024-12-05 15:44] VITALS: BP 112/68; PULSE 100; O2SAT 100
--- NOTE | 2024-12-05 16:28 | PC.NURSE ---
ROUNDED ON THE PT. THE PT VOICES THAT SHE DOES NOT NEED ANYTHING AT THIS TIME. CALL LIGHT IS WITHIN REACH OF THE PT.
[2024-12-05 17:02] VITALS: BP 112/68; PULSE 95; RESP 20; TEMP 36.8; O2SAT 100
== END 2024-12-05 17:09 | disposition home or self-care (01) ==
PROVIDERS: Physician Assistant; Emergency Provider Emergency Medicine; PCP Physician Assistant
DX: K51.00 Ulcerative (chronic) pancolitis without complications (principal); R10.9 Unspecified abdominal pain; R11.2 Nausea with vomiting, unspecified; R19.7 Diarrhea, unspecified
CPT/HCPCS: 74177; 80053; 81001; 81025; 82272; 83690; 83735; 84145; 85025; 87507; 96361; 96374; 99285; G0328; J2550; J7120; Q9967

== ENCOUNTER 2024-12-17 07:13 | Outpatient (CLI) | payer BC, SELFPAY ==
--- NOTE | 2024-12-17 07:23 | US_ITS ---
FINAL REPORT TECHNIQUE: Multiple transverse and longitudinal images CLINICAL HISTORY: NAUSEA W/ VOMITTING FINDINGS: The patient is status postcholecystectomy. No biliary ductal dilatation is appreciated. No fluid collections are seen. Limited portions of the right liver are unremarkable. Limited portions of the right kidney are unremarkable. IMPRESSION: Unremarkable exam, status post cholecystectomy. Reviewed, Interpreted and Dictated by Pierre Rasheed MD Transcribed by Alysa Arguello Authenticated and [facility]
== END 2024-12-17 23:59 | disposition home or self-care (01) ==
PROVIDERS: PCP Physician Assistant; Visit Provider Physician Assistant
DX: R11.2 Nausea with vomiting, unspecified (principal)
CPT/HCPCS: 76705